=== PATIENT | male | born 1985 | race Native Hawaiian/Other Pacific Islander ===

== ENCOUNTER 2018-01-13 13:27 | Outpatient (CLI) | payer OTHER | END 2018-01-13 13:43 | disposition home or self-care (01) | LOC: AMB 13:27 | DX: S41.112A Laceration without foreign body of left upper arm, initial encounter (principal); S41.111A Laceration without foreign body of right upper arm, initial encounter ==

== ENCOUNTER 2018-01-13 13:43 | Inpatient (IN) | payer OTHER ==
[~2018-01-13] VITALS: Ht 185.4 cm; Wt 100.7 kg
[2018-01-13] VITALS (10 sets, daily range): BP systolic 97–115; BP diastolic 38–74; TEMP 97.6–98.1; Ht 185.4 cm; Wt 100.7 kg
--- NOTE | 2018-01-13 17:15 | NUR ---
ADMITTED 32 YEAR OLD MALE TO ICU BE 2 VIA W/C FROM ER. PT IS 1013. PT ADMITTED TO DR CHAWLA SERVICE DX SUCIDE ATTEMPT. DEPRESSION, LAC LEFT ARM. DRESSING APPLIED IN ER DRY CLEAN INTACT. PT ORIENTED TO ICU. ASSISTED PT WITH WASHING UP DRIED BLOOD TO LEGS AND ABD. PLACED ON MONITOR NSR HR 78. PT COOPERATIVE.
--- NOTE | 2018-01-13 18:48 | NUR ---
PT RESTING QUIETLY EYES CLOSED SLEEPING, AWAKENS TO VERBAL COMMANDS, VERY DROWSY. SNORING AT TIMES O2 SAT 100% ON ROOM AIR. LUNGS CLEAR DIMISHED BASES. NO BLEEDING NOTED. HOB UP. PT REFUSED DINNER TRAY AT THIS TIME.
--- NOTE | 2018-01-13 19:00 | NUR ---
RECEIVED PATIENT RESTING WITH EYES CLOSED. PATIENT DROWSY BUT DOES ATTEMPT TO ANSWER QUESTIONS. PATIENT ASKED BY MASTER [employer] TECHNICIAN IF HE COULD STATE WHAT HAPPENED PATIENT STATES " THEY TOLD ME I GOT BIT BY A SNAKE", PATIENT ASKED IF HE SMOKES PATIENT STATES " NO", PATIENT ASKED IF HE DOES ILLEGAL DRUGS PATIENT STATES " NO", PATIENT ASKED IF HE DRINKS PATIENT STATES " YES", "A 12 PACK DAILY", WHEN ASKED HOW LONG PATIENT STATES " FOREVER". IV 20G NOTED TO THE RAC INFUSING D5 1/2 NS AT 100 ML WITHOUT DIFFICULTY. ASKED PATIENT IF HE WAS ABLE TO VOID IN URINAL TO COLLECT URINE SAMPLE PATIENT WAS ABLE TO DO SO WHILE IN BED WITH SOME ASSISTANCE VOIDED APPROX 600 ML OF CLEAR MANDO URINE. BLOOD DRAWN AT THIS TIME WELL. PATIENT STATED " I'M HUNGRY", SUPPER TRAY AT BEDSIDE WARMED AND ASSISTED PATIENT WITH SETTUP. ALSO NOTED, DRESSING TO THE LEFT FOREARM, CLEAN, DRY AND INTACT WITH NO VISIBLE SIGNS OF ACUTE BLEEDING NOTED. PATIENT PLACED IN HIGH FOWLERS POSITION WHILE EATING. BOTH SIDERAILS UP X2, CALL LOPEZ WITHIN REACH.
--- NOTE | 2018-01-13 19:13 | NUR ---
PT CONTINUES SLEEPING IV FLUIDS STARTED AT 10O ML HR. PLACED NICODERM PATCH RIGHT UPPER ARM REPORT TO ONCOMING SHIFT.
--- NOTE | 2018-01-13 19:15 | NUR ---
PATIENT DENIES ANY SUICIDAL IDEATION AT THIS TIME.
--- NOTE | 2018-01-13 20:00 | NUR ---
PATIENT IS RESTING WITH EYES CLOSED AT THIS TIME. NO ACUTE DISTRESS NOTED.
[2018-01-13 20:38] LABS: PLATELET COUNT 342 K/uL (142-355)
[2018-01-13 20:58] LABS: POTASSIUM 3.3 mmol/L (3.6-5.2)
--- NOTE | 2018-01-13 21:00 | NUR ---
PATIENT IS RESTING WITH EYES CLOSED AT THIS TIME.
--- NOTE | 2018-01-13 22:00 | NUR ---
PATIENT IS RESTING WITH EYES CLOSED AT THIS TIME.
--- NOTE | 2018-01-13 23:00 | NUR ---
PATIENT IS RESTING WITH EYES CLOSED AT THIS TIME.
[2018-01-14] VITALS (16 sets, daily range): BP systolic 93–114; BP diastolic 39–58; TEMP 98–99
--- NOTE | 2018-01-14 | NUR ---
PATIENT IS RESTING WITH EYES CLOSED NO ACUTE DISTRESS NOTED.
--- NOTE | 2018-01-14 01:00 | NUR ---
PATIENT IS RESTING WITH EYES CLOSED. NO ACUTE DISTRESS NOTED.
--- NOTE | 2018-01-14 02:00 | NUR ---
PATIENT IS RESTING WITH EYES CLOSED AT THIS TIME. PATIENT BLOOD PRESSURE LOW 500 ML [address] PER [address] KADE RICHARDSON.
--- NOTE | 2018-01-14 03:00 | NUR ---
PATIENT IS RESTING WITH EYES CLOSED AT THIS TIME. NO SIGNS OF ACUTE DISTRESS NOTED.
--- NOTE | 2018-01-14 04:00 | NUR ---
PATIENT IS AWAKE AT THIS TIME WATCHING TV. PATIENT REQUESTED SNACK. PUDDING GIVEN. NO ACUTE DISTRESS NOTED.
[2018-01-14 07:20] LABS: PLATELET COUNT 312 K/uL (142-355)
[2018-01-14 07:39] LABS: POTASSIUM 3.5 mmol/L (3.6-5.2)
--- NOTE | 2018-01-14 08:15 | NUR ---
PT RESTING QUIETLY WITH EYES CLOSED. NAD NOTED. WILL CONTINUE TO MONITOR.
--- NOTE | 2018-01-14 08:21 | NUR ---
DR. CHAWLA AT THE BEDSIDE.
--- NOTE | 2018-01-14 09:44 | NUR ---
PT AWAKE AND AERLT. PT VOICES NO COMPLAINTS AT THIS TIME. WILL CONTINUE TO MONITOR.
--- NOTE | 2018-01-14 10:17 | NUR ---
SPOKE WITH CRISIS LINE ABOUT PLACEMENT FOR PATIENT AT THIS TIME. DR. CHAWLA NOTIFIED.
--- NOTE | 2018-01-14 11:00 | NUR ---
PT AWAKE AND ALERT. PT STATES HE HAS TO PEE. PT GIVEN URINAL. 600 CC'S OF DARK MANDO URINE NOTED. PT VOICES NO OTHER COMPLAINTS. WILL CONTINUE TO MONITOR.
--- NOTE | 2018-01-14 13:08 | NUR ---
PT SITTING UP IN BED EATING LUNCH TRAY. NO COMPLAINS VOICED.
--- NOTE | 2018-01-14 13:23 | NUR ---
PT RESTING WITH EYES CLOSED. NAD NOTED. WILL CONTINUE TO MONITOR.
--- NOTE | 2018-01-14 14:29 | NUR ---
RECEIVED CALL FROM [facility] AT THIS TIME. [facility] NOTIFIED ME THAT THEY WILL ACCEPT PATIENT. TANYA WOODARD NOTIFIED.
--- NOTE | 2018-01-14 14:42 | NUR ---
[facility] OFFICE NOTIFIED OF NEED FOR TRANSPORT OF PATIENT.
--- NOTE | 2018-01-14 14:57 | NUR ---
PT RESTING WITH EYES CLOSED. SNORING NOTED. WILL CONTINUE TO MONITOR.
--- NOTE | 2018-01-14 15:15 | NUR ---
REPORT CALLED AND GIVEN TO ILENE MARIEE AT [facility]
--- NOTE | 2018-01-14 15:20 | NUR ---
PT D/C AT THIS TIME VIA WHEELCHAIR AND TRANSFERRED VIA [facility]S OFFICE TO [facility]
== END 2018-01-14 15:19 | disposition other institution (70) | DRG 605 ==
LOC: ED 13:43 → ICU 15:00
PROVIDERS: ADMIT Family Medicine
PROC: 0HQEXZZ Repair Left Lower Arm Skin, External Approach (ICD-10-PCS; principal; 2018-01-13)
DX: S61.512A Laceration without foreign body of left wrist, initial encounter (principal); X78.1XXA Intentional self-harm by knife, initial encounter; Y92.89 Other specified places as the place of occurrence of the external cause
CPT/HCPCS: 36415; 80048; 80053; 80307; 80320; 81000; 82962; 85027; 90471; 90715; 96365; 96375; 99285; J0696; J1650; J1885; J7040